=== PATIENT | male | born 1960 | race Caucasian/White ===

== ENCOUNTER 2024-02-24 19:27 | Emergency (ER) | payer BC ==
[~2024-02-24] VITALS: Ht 172.7 cm; Wt 78.2 kg
[2024-02-24] MEDS: nitroGLYCERIN 0.4mg SUBLingual tab SL PRN (20:14)
[2024-02-24] MEDS: glucagon, human recombinant 1mg kit IV ONE (20:58)
[2024-02-24 21:31] VITALS: BP 122/70; PULSE 66; RESP 17; O2SAT 97
[2024-02-24 21:33] VITALS: TEMP 97.9
== END 2024-02-24 21:34 | disposition home or self-care (01) ==
LOC: ER 19:27
DX: T18.128A Food in esophagus causing other injury, initial encounter (principal); I48.91 Unspecified atrial fibrillation; Z88.8 Allergy status to other drugs, medicaments and biological substances; F10.90 Alcohol use, unspecified, uncomplicated; F17.200 Nicotine dependence, unspecified, uncomplicated; Z88.0 Allergy status to penicillin; W44.F3XA Food entering into or through a natural orifice, initial encounter; Y93.89 Activity, other specified; Y92.89 Other specified places as the place of occurrence of the external cause; Y99.8 Other external cause status
CPT/HCPCS: 96374; 99284; J1610